=== PATIENT | male | born 1990 | race Caucasian/White ===

== ENCOUNTER 2022-04-18 05:46 | Emergency (ER) | payer MEDICAID ==
[~2022-04-18] VITALS: Ht 172.7 cm; Wt 100.0 kg
[2022-04-18 06:02] VITALS: BP 155/95
[2022-04-18] MEDS ORDERED: FURO-150 PO (07:07)
[2022-04-18] MEDS ORDERED: CEPH-585 PO (07:07)
[2022-04-18] MEDS ORDERED: SULF1TAB45 PO (07:07)
[2022-04-18] MEDS ORDERED: cephalexin 250mg capsule PO ONE (07:10)
[2022-04-18] MEDS ORDERED: sulfamethoxazole/trimethoprim DS (800/160mg) tablet PO ONE (07:10)
== END 2022-04-18 07:24 | disposition home or self-care (01) ==
LOC: ER 05:47
DX: L03.115 Cellulitis of right lower limb (principal); F12.90 Cannabis use, unspecified, uncomplicated; F15.20 Other stimulant dependence, uncomplicated
CPT/HCPCS: 99283